=== PATIENT | female | born 1985 | race Caucasian/White ===

== ENCOUNTER 2019-02-28 05:45 | Day surgery (SDC) | payer BC ==
[~2019-02-28] VITALS: Ht 172.7 cm; Wt 75.3 kg
[2019-02-28] MEDS ORDERED: MULTIVITAMINS1 EAC7 PO (06:02)
[2019-02-28] MEDS ORDERED: VITAMIN B-225 MG PO (06:02)
[2019-02-28] MEDS ORDERED: VITAMIN D400 UNIT PO (06:03)
--- NOTE | 2019-02-28 08:01 | NUR ---
02/28/19 0801 Maribel Ruffin SN 0749- PT ARRIVES TO PACU. RESPIRATIOSN EVEN AND NONLABORED. PT HAS OPA IN PLACE. RECIEVING O2 AT 10 LITERS VIA MASK. 02 SATS HIGH 90'S. PT IS OPENING EYES AND MOVING ARMS BUT WHEN INSTRUCTED TO OPEN MOUTH TO REMOVE OPA, THE PT FALLS BACK ASLEEP. OPS REMAINS IN PLACE. 0751 02 TITRATED DOWN TO 6 LITERS. PT O2 SATS HIGH 90'S. TOELRATING WELL. 0752- PT ABLE TO NOD IN RESPONSE TO QUESTIONS FROM ERIN PULIDO. OPA REMOVED BY ERIN PULIDO. PT RESPIRATIONS EVEN AND NON LABORED. 02 SATS HIGH 90'S ON 6 LITERS VIA MASK. DENIES PAIN, NAUSEA, AND DIZZINESS AT THIS TIME. 0755 02 REMOVED. PT O2 SATS HIGH 90'S ON ROOM AIR. RESPIRATIONS EVEN AND NON LABORED.
--- NOTE | 2019-02-28 08:28 | NUR ---
PT ARRIVES TO DS RM 2 FROM RECOVERY A&O X3. PT RESP EVEN AND UNLABORED, SATS 100% ON RA. PT DENIES ANY NAUSEA AND RATES PAIN "MILD CRAMPING" /. PT PROVIDED ICED WATER AND WARM BLANKET. SPOUSE AT BEDSIDE.
--- NOTE | 2019-02-28 08:35 | NUR ---
PT PROVIDED PUDDING PER REQUEST. PT SPOUSE WOULD LIKE TO TALK TO DR ABOUT PROCEDURE. DR. FARRELL'S OFFICE NOTIFIED, ENERGY TRADING ANALYST DEMARCO TO REPORT MESSAGE.
[2019-02-28] MEDS ORDERED: IBUPROFEN800 MG PO (08:55)
--- NOTE | 2019-02-28 09:12 | NUR ---
ASSISTED PT TO BR VOIDS 400MLS PINK URINE. STATES DOESNT NEED TO CHANGE PAD. AMB WELL.
--- NOTE | 2019-02-28 09:31 | NUR ---
PT RESTING IN BED WITH BECCA HUGGER IN PLACE. PT SPOUSE REMAINS AT BEDSIDE. PT DENEIS ANY N/V OR PAIN AT THIS TIME. DC CRITERIA MET AT THIS TIME.
--- NOTE | 2019-02-28 10:40 | NUR ---
0940: PT DRESSES SELF WITH HELP FROM SPOUSE. PT DC'S FROM DS RM 2 VIA WC WITH SPOUSE AND DS VOLUNTEER CARLOS TO HOME.
--- NOTE | 2019-03-01 08:32 | OR ---
[facility] [address] [place] [address] Signed DATE OF OPERATION: 02/28/2019 SURGEON: Rob Mccormick MD PREOPERATIVE DIAGNOSIS: Molar . POSTOPERATIVE DIAGNOSIS: Molar . PROCEDURE: Suction dilation and curettage. ANESTHESIA: General. ESTIMATED BLOOD LOSS: 150 mL. COMPLICATIONS: None. DRAINS: None. SPECIMEN: Uterine contents, products of conception. FINDINGS: Vagina: No blood. Cervix: Thick, closed. Uterus: 6 week size, anterior. Normal shape. No adnexal masses. Moderate amount of placental appearing tissue. DESCRIPTION: The patient was brought into the operating room, placed in supine position. After adequate general anesthesia was obtained, she was placed in a dorsal lithotomy position. Prepped and draped in usual sterile fashion. The Pitocin was put in the IV bag just prior to start of the case to help with the uterine contraction. The bladder was drained with straight cath and then a weighted speculum placed in the vagina and the anterior lip of the cervix grasped with an Allis clamp. Uterine cavity was serially dilated up to a Electronically Signed By: ROB MCCORMICK MD 03/01/19 0832 PATIENT NAME: NITIN DIALLO OPERATIVE REPORT DATE OF : 89 REPORT #: [id number] PHYSICIAN: ROB MCCORMICK MD PCP: NO PRIMARY CARE PHYSICIAN REPORT IS CONFIDENTIAL AND NOT TO BE RELEASED WITHOUT AUTHORIZATION [facility] [address] [place] [address] Signed #9-Pashto dilator. A #9 curved suction tip curette was then carefully introduced through the cervix into the uterine cavity and gently brought up to the fundus. Suction was applied and the uterine contents scraped in a 360 degree fashion. Each time taking care to go in slowly to the fundus and then suction and scrape on the way out. This was continued until no additional tissue was seen in the suction tubing and the bleeding was controlled. With suction curette removed, the sharp curette was carefully introduced in the uterine cavity and carefully scraped 360 degree fashion. Removing a few very small pieces of tissue seemed to be remaining. At this point, no additional tissue was removed. The cervix appeared to have good hemostasis. All instruments were removed. The uterus again palpated and noted to be firm and about same size. The vagina and cervix were re-examined. Again, good hemostasis was noted. At this point, procedure was terminated. The patient tolerated the procedure well, went to recovery room in good condition. The sponge and instrument count correct at end of procedure. The uterine specimen was sent to Pathology for identification. MD ELINOR Mosquera/MARIA TERESA /[id number] Copies: ~ Electronically Signed By: ROB MCCORMICK MD 03/01/19 0832 PATIENT NAME: NITIN DIALLO OPERATIVE REPORT DATE OF : 89 REPORT #: [id number] PHYSICIAN: RBO MCCORMICK MD PCP: NO PRIMARY CARE PHYSICIAN REPORT IS CONFIDENTIAL AND NOT TO BE RELEASED WITHOUT AUTHORIZATION
== END 2019-02-28 09:45 | disposition home or self-care (01) ==
LOC: DS 05:45
PROVIDERS: General Practice
PROC: 10D07Z8 Extraction of Products of Conception, Other, Via Natural or Artificial Opening (ICD-10-PCS; principal; 2019-02-28 06:45)
DX: O02.0 Blighted ovum and nonhydatidiform mole (principal); Z88.0 Allergy status to penicillin; Z3A.01 Less than 8 weeks gestation of pregnancy; Z79.899 Other long term (current) drug therapy
CPT/HCPCS: 00952; 86850; 86900; 86901; 86920; J0131; J1100; J2250; J2370; J2405; J2590; J2704; J3010; J7120